=== PATIENT | female | born 1940 | race Caucasian/White ===

== ENCOUNTER 2023-03-16 05:21 | Observation (INO) ==
[2023-03-16 06:21] LABS: ABS Eosinophils 0.1 10^3/uL (0.0-0.5); ABS Lymphocytes 0.9 10^3/uL (1.0-4.8); ABS Monocytes 0.4 10^3/uL (0.0-0.9); ABS Neutrophils 2.1 10^3/uL (1.5-7.6); ABS Nucleated RBC 0.01 10^3/ul; Eosinophil % 2.6 %; Hematocrit 29.6 % (35-45); Hemoglobin 9.9 g/dL (11.5-14.3); Mean Corpuscular Hemoglobin 30.5 pg (27-33); Mean Corpuscular Hgb Conc 33.3 g/dL (31-36); Mean Corpuscular Volume 91.6 fL (80-97); Mean Platelet Volume 8.8 fL (7.5-11.2); Nucleated Red Blood Cells % 0.3 %/100WBC (0.0-0.8); Platelet Count 117 10^3/uL (150-450); Red Blood Count 3.23 10^6/uL (3.63-4.92); Red Cell Distribution Width 22.5 % (12-17); White Blood Count 3.6 10^3/uL (3.8-11.8)
[2023-03-16 06:41] LABS: Albumin 3.1 g/dL (3.2-5.2); Calcium 9.1 mg/dL (8.6-10.3); Creatinine, Serum 1.59 mg/dL (0.51-0.95); Globulin 3.2 g/dL (2-4); Potassium 3.3 mmol/L (3.5-5.0); Total Bilirubin 0.7 mg/dL (0.2-1.0); Total Protein 6.3 g/dL (6.4-8.9); eGFR CKD-EPI 32.2 (>60)
[2023-03-16] MEDS ORDERED: Iodixanol (CONTRAST) 320 MG/ML 100 ML SDV IV ONE (07:12)
[2023-03-16 09:40] LABS: Hematocrit 29.7 % (35-45); Hemoglobin 9.8 g/dL (11.5-14.3); Mean Corpuscular Hemoglobin 30.4 pg (27-33); Mean Corpuscular Hgb Conc 33.1 g/dL (31-36); Mean Corpuscular Volume 91.7 fL (80-97); Mean Platelet Volume 9.2 fL (7.5-11.2); Platelet Count 137 10^3/uL (150-450); Red Blood Count 3.23 10^6/uL (3.63-4.92); Red Cell Distribution Width 23.4 % (12-17); White Blood Count 4.2 10^3/uL (3.8-11.8)
[2023-03-16 10:50] LABS: Magnesium 2.1 mg/dL (1.9-2.7)
[2023-03-16] MEDS: Pantoprazole VIAL 40 MG VIAL IV SCH (11:13)
[2023-03-16] MEDS ORDERED: Potassium Chlor 20 meq TAB.ER PO ONE (11:33)
[2023-03-16] MEDS ORDERED: Potassium Chloride IV 40 MEQ in Lactated Ringers 1000 ml BAG 1,000 ML IVPB SCH (12:00)
[2023-03-16] MEDS: Aspirin EC 81 mg TAB.EC (enteric coated) PO SCH (13:42)
[2023-03-16 18:46] LABS: Hematocrit 26.3 % (35-45); Hemoglobin 8.8 g/dL (11.5-14.3)
[2023-03-16] MEDS ORDERED: PEG 3000 GI LAVAGE 1 GALLON PO ONE (19:00)
[2023-03-17 07:17] LABS: Hematocrit 28.3 % (35-45); Hemoglobin 9.1 g/dL (11.5-14.3); Mean Corpuscular Hemoglobin 30.1 pg (27-33); Mean Corpuscular Hgb Conc 32.3 g/dL (31-36); Mean Corpuscular Volume 93.1 fL (80-97); Mean Platelet Volume 9.3 fL (7.5-11.2); Platelet Count 114 10^3/uL (150-450); Red Blood Count 3.04 10^6/uL (3.63-4.92); Red Cell Distribution Width 23.2 % (12-17); White Blood Count 3.7 10^3/uL (3.8-11.8)
[2023-03-17 07:24] LABS: Calcium 8.7 mg/dL (8.6-10.3); Creatinine, Serum 1.37 mg/dL (0.51-0.95); Potassium 3.8 mmol/L (3.5-5.0); eGFR CKD-EPI 38.6 (>60)
[2023-03-17] MEDS: Pantoprazole VIAL 40 MG VIAL IV SCH (08:44)
[2023-03-17] MEDS: Aspirin EC 81 mg TAB.EC (enteric coated) PO SCH (08:44)
[2023-03-17] MEDS ORDERED: Midazolam 10 mg/10 ml VIAL 1 mg/ml 10 ml VIAL (10 mg) ONE (14:51)
[2023-03-17] MEDS ORDERED: fentaNYL 100 mcg/2 ml 50 MCG/ML VIAL ONE (14:51)
[2023-03-17 19:17] LABS: Hematocrit 24.4 % (35-45); Hemoglobin 8.2 g/dL (11.5-14.3)
[2023-03-18 06:39] LABS: ABS Eosinophils 0.1 10^3/uL (0.0-0.5); ABS Monocytes 0.4 10^3/uL (0.0-0.9); ABS Neutrophils 2.3 10^3/uL (1.5-7.6); Eosinophil % 2.5 %; Hemoglobin 8.1 g/dL (11.5-14.3); Lymphocyte % 26.9 %; Mean Corpuscular Hemoglobin 30.6 pg (27-33); Mean Corpuscular Hgb Conc 33.5 g/dL (31-36); Mean Corpuscular Volume 91.1 fL (80-97); Mean Platelet Volume 8.7 fL (7.5-11.2); Nucleated Red Blood Cells % 0.1 %/100WBC (0.0-0.8); Platelet Count 109 10^3/uL (150-450); Red Blood Count 2.64 10^6/uL (3.63-4.92); Red Cell Distribution Width 22.5 % (12-17); White Blood Count 3.8 10^3/uL (3.8-11.8)
[2023-03-18 06:53] LABS: Calcium 8.7 mg/dL (8.6-10.3); Creatinine, Serum 1.35 mg/dL (0.51-0.95); Magnesium 1.9 mg/dL (1.9-2.7); Potassium 3.4 mmol/L (3.5-5.0); eGFR CKD-EPI 39.2 (>60)
[2023-03-18] MEDS: Aspirin EC 81 mg TAB.EC (enteric coated) PO SCH (08:05)
[2023-03-18] MEDS: Pantoprazole VIAL 40 MG VIAL IV SCH (08:05)
[2023-03-18] MEDS ORDERED: Potassium Chloride LIQUID 20 MEQ/15 ML LIQUID PO ONE (08:07)
[2023-03-18 13:20] LABS: Hematocrit 28.1 % (35-45); Hemoglobin 9.1 g/dL (11.5-14.3)
[2023-03-18 14:15] VITALS: BP 123/62
[2023-03-18] MEDS ORDERED: Calcium Carb (TUMS) 500 mg CHEW TAB PO ONE ×2 (14:58→16:00)
[2023-03-18] MEDS ORDERED: Calcium Carb (TUMS) 500 mg CHEW TAB ONE (15:17)
== END 2023-03-18 15:45 | disposition home or self-care (01) ==
LOC: ED 05:21 → EDHOLD 05:21 → SUATTDRO 10:28 → MEDTELE 14:08
PROVIDERS: ADMIT Hospitalist; ATTEND Student in an Organized Health Care Education/Training Program